=== PATIENT | female | born 1965 | race Asian ===

== ENCOUNTER 2018-05-17 18:06 | Emergency (ER) | payer SELFPAY ==
--- NOTE | 2018-05-17 18:55 | EDPHY ---
H & P Time Seen by Provider: 05/17/18 18:36 HPI/ROS: CHIEF COMPLAINT: Chills, low blood pressure HISTORY OF PRESENT ILLNESS: Patient says she has had dizziness"for years"and has been feeling lightheaded for the last 2 days, like previous dizziness. She also has had ringing in her ears for"a long time"of unknown duration for long time. She said that she had a blood pressure was low at 90 4/54 yesterday at the eye doctor has been eating more salt. Today she started feeling cold and chilled for the last 2 hr and presents for evaluation. She was worried about low blood pressure damage in her heart. She is worried about the chills. No earache or sore throat, no dental symptoms, no cough or shortness of breath, no headache or stiff neck, no vomiting or diarrhea, no urinary symptoms, no recent foreign travel. REVIEW OF SYSTEMS: Eye: No double vision ENT: no sore throat or earache Cardiac: no chest pain or syncope Pulmonary: no cough or SOB Abdomen: no vomiting, diarrhea, abdominal pain, no black or bloody stools Musculoskeletal: no back pain Skin: no rash Neuro: no headache Constitutional: HPI : no urinary symptoms A comprehensive 10 point review of systems is otherwise negative aside from elements mentioned in the history of present illness. PAST MEDICAL HISTORY: [place] tooth surgery,history of anxiety Social history: Denies drugs or alcohol General Appearance: Alert and conversant, cooperative. Eyes: No scleral icterus. Pupils equal reactive extraocular motion intact ENT, Mouth: Normal mucous membranes. With normal tympanic membranes. Respiratory: Normal respiratory effort, breath sounds equal, lungs are clear to auscultation. Cardiovascular: Regular rate and rhythm. No murmur. Gastrointestinal: Abdomen is soft and non tender. Neurological: Alert, face symmetric, normal motor and sensory in extremities. Normal [id number]-[id number] bilaterally, no pronator drift, ambulatory without ataxia. Skin: Warm and dry, no rashes. Musculoskeletal: No neck stiffness. Psychiatric: Not agitated. Emergency Department course/MDM: Patient is afebrile, normal saturation, normal lung exam and ENT exam. I think acute serious bacterial illness is unlikely. Dysrhythmia appears unlikely. With chills most likely appears to be some type of viral syndrome, will check urinalysis and electrolytes. 1945: Results discussed, warned she needs follow-up for her anemia. Unlikely to be UTI. Not metabolic abnormality. Patient states she is reassured and is comfortable going home. Smoking Status: Former smoker Constitutional: Initial Vital Signs Temperature (C) 36.6 C 05/17/18 18:17 Heart Rate 87 05/17/18 18:17 Respiratory Rate 16 05/17/18 18:17 Blood Pressure 125/89 H 05/17/18 18:17 O2 Sat (%) 99 05/17/18 18:17 O2 Delivery Mode Room Air Allergies/Adverse Reactions: codeine Allergy (Verified 11/06/10 00:54) Home Medications: Medication Instructions Recorded NK [No Known Home Meds] 05/17/18 Medical Decision Making - Data Points Laboratory Results: Laboratory Results 05/17/18 19:00 05/17/18 19:00 05/17/18 05/17/18 05/17/18 19:00 19:00 18:53 WBC 7.35 10^3/uL 10^3/uL (3.80-9.50) RBC 4.11 10^6/uL L 10^6/uL (4.18-5.33) Hgb 12.1 g/dL L g/dL (12.6-16.3) Hct 36.7 % L % (38.0-47.0) MCV 89.3 fL fL (81.5-99.8) MCH 29.4 pg pg (27.9-34.1) MCHC 33.0 g/dL g/dL (32.4-36.7) RDW 13.9 % % (11.5-15.2) Plt Count 263 10^3/uL 10^3/uL (150-400) MPV 9.9 fL fL (8.7-11.7) Neut % (Auto) 55.4 % % (39.3-74.2) Lymph % (Auto) 34.0 % % (15.0-45.0) [place] % (Auto) 7.8 % % (4.5-13.0) Eos % (Auto) 2.2 % % (0.6-7.6) Baso % (Auto) 0.3 % % (0.3-1.7) Nucleat RBC Rel Count 0.0 % % (0.0-0.2) Absolute Neuts (auto) 4.08 10^3/uL 10^3/uL (1.70-6.50) Absolute Lymphs (auto) 2.50 10^3/uL 10^3/uL (1.00-3.00) Absolute Monos (auto) 0.57 10^3/uL 10^3/uL (0.30-0.80) Absolute Eos (auto) 0.16 10^3/uL 10^3/uL (0.03-0.40) Absolute Basos (auto) 0.02 10^3/uL 10^3/uL (0.02-0.10) Absolute Nucleated RBC 0.00 10^3/uL 10^3/uL (0-0.01) Immature Gran % 0.3 % % (0.0-1.1) Immature Gran # 0.02 10^3/uL 10^3/uL (0.00-0.10) Sodium 140 mEq/L mEq/L (135-145) Potassium 4.1 mEq/L mEq/L (3.3-5.0) Chloride 107 mEq/L mEq/L (97-110) Carbon Dioxide 23 mEq/l mEq/l (22-31) Anion Gap 10 mEq/L mEq/L (6-14) BUN 15 mg/dL mg/dL (7-23) Creatinine 0.8 mg/dL mg/dL (0.6-1.0) Estimated GFR > 60 Glucose 91 mg/dL mg/dL (70-100) Calcium 9.9 mg/dL mg/dL (8.5-10.4) Urine Color YELLOW Urine Appearance CLEAR Urine pH 6.0 (5.0-7.5) Ur Specific [place] 1.004 (1.002-1.030) Urine Protein NEGATIVE (NEGATIVE) Urine Ketones NEGATIVE (NEGATIVE) Urine Blood NEGATIVE (NEGATIVE) Urine Nitrate NEGATIVE (NEGATIVE) Urine Bilirubin NEGATIVE (NEGATIVE) Urine Urobilinogen NEGATIVE EU EU (0.2-1.0) Ur Leukocyte Esterase NEGATIVE (NEGATIVE) Urine Glucose NEGATIVE (NEGATIVE) Departure - Departure Disposition: Home, Routine, Self-Care Clinical Impression: Chills Anemia Qualifiers: Anemia type: unspecified type Qualified Code(s): D64.9 - Anemia, unspecified Condition: Good Instructions: Anemia (ED) Referrals: Lupe Hussein MD [Primary Care Provider] - As per Instructions (Your hematocrit slightly low at 36 compared to 42 back in 2015. Please follow-up with your primary care doctor in the next month. )
[2018-05-17 19:11] LABS: PLATELET COUNT 263 10^3/uL (150-400)
[2018-05-17 20:00] VITALS: BP 127/79
== END 2018-05-17 19:59 | disposition home or self-care (01) ==
DX: R68.83 Chills (without fever) (principal); D64.9 Anemia, unspecified; R42 Dizziness and giddiness; R03.1 Nonspecific low blood-pressure reading; Z87.891 Personal history of nicotine dependence